=== PATIENT | female | born 1985 | race African-American/Black ===

== ENCOUNTER 2018-08-21 20:21 | Emergency (ER) | payer OTHER ==
[~2018-08-21] VITALS: Ht 160 cm; Wt 97.5 kg
[~2018-08-21 20:21] MED LIST: EXCEDRIN CAPLE1 EACH PO; IBUPROFEN 600600 M1 PO; MIRALAX255 GM PO; NECON1 EAC1 PO; NORCO 5-325 TA1 EACH PO; TOBREX5 ML OPHTHALMIC
[2018-08-21] MEDS ORDERED: NORFLEX100 MG PO (21:42)
[2018-08-21] MEDS ORDERED: NAPROSYN500 MG PO (21:42)
[2018-08-21 22:34] VITALS: BP 130/75
== END 2018-08-21 22:37 | disposition home or self-care (01) ==
LOC: ER 20:21
DX: G44.209 Tension-type headache, unspecified, not intractable (principal)

== ENCOUNTER 2019-08-05 19:56 | Emergency (ER) | payer OTHER ==
[~2019-08-05] VITALS: Ht 160 cm; Wt 102.1 kg
[~2019-08-05 19:56] MED LIST changes: +NAPROSYN500 MG PO; +NORFLEX100 MG PO
[2019-08-05 20:51] LABS: ABSOLUTE NEUTROPHILS 9.4 thou/uL (1.4-8.2); BASOPHILS 0.4 % (0.0-2.0); EOSINOPHILS 2.3 % (0.0-3.0); HEMATOCRIT 33.1 % (37.0-47.0); HEMOGLOBIN 10.7 gm/dL (12.0-15.0); LYMPHOCYTES 14.7 % (24.0-44.0); MCH 28.4 pg (26.0-34.0); MCHC 32.2 g/dL (28.0-37.0); MCV 88.2 fL (80.0-100.0); MONOCYTES 8.4 % (1.0-8.0); PLATELET COUNT 404 thou/uL (150-400); POLYS 74.2 % (36.0-66.0); RBC 3.75 mil/uL (4.20-5.00); RDW 13.8 % (10.5-14.5); WBC 12.7 thou/uL (4.0-11.0)
[2019-08-05 20:52] LABS: URINE BILIRUBIN NEGATIVE (Negative); URINE BLOOD 2+ (Negative); URINE CLARITY CLEAR; URINE COLOR YELLOW; URINE GLUCOSE-RANDOM* NEGATIVE (Negative); URINE KETONES NEGATIVE (Negative); URINE LEUKOCYTES-REFLEX TRACE (Negative); URINE NITRITE-REFLEX NEGATIVE (Negative); URINE PROTEIN (DIPSTICK) TRACE (Negative); URINE SPECIFIC GRAVITY >= 1.030 (1.005-1.035); URINE UROBILINOGEN 0.2 E.U./dl (0.2-1.0)
[2019-08-05 21:04] LABS: CALCIUM 9.8 mg/dL (8.5-10.1); CREATININE 0.9 mg/dL (0.6-1.0); POTASSIUM 4.3 mmol/L (3.5-5.1)
[2019-08-05 21:07] LABS: SQUAMOUS >10 Many /LPF (0-3)
[2019-08-05 21:08] LABS: CASTS None Seen /LPF (None Seen); CRYSTALS None Seen /LPF (None Seen); URINE RBC 3-10 Few /HPF (0-2); URINE WBC-REFLEX 6-15 Few /HPF (0-5)
[2019-08-05 21:09] LABS: BACTERIA-REFLEX 1-9 Few /HPF (None Seen)
[2019-08-05] MEDS ORDERED: LEVAQUIN 500 M500 M3 PO (23:30)
[2019-08-05] MEDS ORDERED: FLAGYL500 M1 PO (23:30)
[2019-08-05 23:47] VITALS: BP 116/67
== END 2019-08-05 23:48 | disposition home or self-care (01) ==
LOC: ER 19:56
PROVIDERS: Emergency Medicine Emergency Medical Services
DX: R50.82 Postprocedural fever (principal); G43.909 Migraine, unspecified, not intractable, without status migrainosus